=== PATIENT | female | born 1960 | race African-American/Black ===

== ENCOUNTER 2017-09-04 19:37 | Emergency (ER) | payer OTHER ==
[~2017-09-04] VITALS: Ht 170.2 cm; Wt 83.9 kg
[~2017-09-04 19:37] MED LIST: ANAPROX DS550 MG PO
[2017-09-04] MEDS ORDERED: NAPROSYN500 MG PO (20:39)
[2017-09-04 21:01] VITALS: BP 130/56
== END 2017-09-04 21:01 | disposition home or self-care (01) ==
LOC: ER 19:37
DX: M65.4 Radial styloid tenosynovitis [de Quervain] (principal)